=== PATIENT | male | born 1990 | race Caucasian/White ===

== ENCOUNTER 2017-08-16 22:51 | Emergency (ER) | payer BC, OTHER ==
[~2017-08-16] VITALS: Ht 172.7 cm; Wt 89.0 kg
[2017-08-16 22:55] VITALS: BP 128/67
[2017-08-16] MEDS ORDERED: DIPH,PERTUSS(ACELL),TET VAC/PF 0.5 ML IM-VACC ONE ×2 (23:30→23:37)
[2017-08-17] MEDS ORDERED: BACITRACIN ZINC OINT 500U/GM, 0.9 GM ONE (00:06)
== END 2017-08-17 00:27 | disposition home or self-care (01) ==
LOC: ED 08-17 00:15
DX: S00.211A Abrasion of right eyelid and periocular area, initial encounter (principal); S80.212A Abrasion, left knee, initial encounter; S80.211A Abrasion, right knee, initial encounter; S60.471A Other superficial bite of left index finger, initial encounter; W50.3XXA Accidental bite by another person, initial encounter; Y93.89 Activity, other specified; Y92.89 Other specified places as the place of occurrence of the external cause; Y99.0 Civilian activity done for income or pay
CPT/HCPCS: 90471; 90715